=== PATIENT | female | born 1990 ===

== ENCOUNTER 2023-09-10 11:02 | Day surgery (SDC) | payer OTHER ==
[~2023-09-10] VITALS: Ht 167.6 cm; Wt 131.5 kg
[2023-09-10] MEDS ORDERED: fentaNYL citrate 0.05 MG/ML VIAL ONE (12:57)
[2023-09-10] MEDS ORDERED: MIDAZOLAM 5 MG/5 ML VIAL ONE (12:57)
[2023-09-10] MEDS ORDERED: diphenhydrAMINE 50 MG/ML VIAL ONE (12:57)
== END 2023-09-10 14:00 | disposition home or self-care (01) ==
LOC: MDS 11:02 → MMU 11:06 → MDS 14:00
PROVIDERS: ATTEND Internal Medicine Gastroenterology
DX: K30 Functional dyspepsia (principal); K21.00 Gastro-esophageal reflux disease with esophagitis, without bleeding; K58.0 Irritable bowel syndrome with diarrhea; F32.A Depression, unspecified; Z79.899 Other long term (current) drug therapy
CPT/HCPCS: 43239; J1200; J2250; J3010; J7030